=== PATIENT | female | born 2000 | race Caucasian/White ===

== ENCOUNTER 2020-04-16 16:46 | Emergency (ER) | payer OTHER, MEDICAID, SELFPAY ==
[2020-04-16 17:14] VITALS: BP 118/77; PULSE 112; RESP 17; TEMP 36.9; O2SAT 99; BMI 16.9
[2020-04-16 18:02] LABS: UR Morphine/Opiate cutoff 300 Negative (Negative); Ur Creatinine Normal (Normal); Ur Specific Gravity Normal (Normal); Urine Amphetamines Negative (Negative); Urine Barbiturates Negative (Negative); Urine Benzodiazepines Negative (Negative); Urine Cocaine Negative (Negative); Urine MDMA Negative (Negative); Urine Methadone Negative (Negative); Urine Methamphetamines Negative (Negative); Urine Oxycodone Negative (Negative); Urine Phencyclidine Negative (Negative); Urine Tetrahydrocannabinol Positive (Negative); Urine Tricyclic Antidepressant Negative (Negative); Urine pH Normal (Normal)
[2020-04-16 18:08] LABS: Add Manual Diff / Slide Review NO; Basophils Absolute Auto 0 /uL (0-100); Basophils Percent Auto 0.5 % (0-2); Eosinophils Absolute Auto 0 /uL (0-450); Eosinophils Percent Auto 0.2 % (2-4); Hematocrit 40.6 % (36-46); Hemoglobin 13.2 g/dL (12.0-16.0); Lymphocytes Absolute Auto 1200 /uL (1100-4500); Lymphocytes Percent Auto 13.5 % (25-40); Mean Corpuscular HGB Conc 32.4 % (30-36); Mean Corpuscular Hemoglobin 28.9 PG (26-34); Monocytes Absolute Auto 500 /uL (0-900); Neutrophils Absolute Auto 7400 /uL (1500-7000); Neutrophils Percent Auto 80.8 % (50-75); Platelet Count 249 X10^3/uL (150-400); Red Blood Cell Count 4.56 X10^6/uL (4.0-5.2); Red Cell Distribution Width 12.8 % (11.6-14.8); White Blood Cell Count 9.1 X10^3/uL (4.5-11.0)
[2020-04-16 18:16] LABS: Acetaminophen < 10 ug/mL (10-30); Alanine Aminotransferase 17 IU/L (<35); Albumin 4.5 g/dL (3.5-5.0); Albumin Globulin Ratio 1.5 (1.0-2.8); Alkaline Phosphatase 51 U/L (38-126); Aspartate Aminotransferase 28 IU/L (14-36); BUN Creatinine Ratio 21.1 (6-22); Bilirubin Total 0.3 mg/dL (0.2-1.3); Blood Urea Nitrogen 12 mg/dL (7-17); Carbon Dioxide 27 mmol/L (22-32); Chloride 105 mmol/L (98-107); Estimated Glomerular Filt Rate > 60.0 mL/min (>60); Ethanol (ETOH) < 10 mg/dL; Globulin 3.1 g/dL (1.7-4.1); Glucose 118 mg/dL (70-100); HEMOLYSIS < 15 (0-50); Potassium 4.1 mmol/L (3.4-5.1); Salicylate < 1.0 mg/dL (<20); Sodium 137 mmol/L (137-145); Total Protein 7.6 g/dL (6.3-8.2)
[2020-04-16 18:32] LABS: Free T4, Direct Thyroxine 1.08 ng/dL (0.78-2.19)
[2020-04-16 18:46] LABS: Thyroid Stimulating Hormone 1.15 uIU/mL (0.47-4.68)
[2020-04-16 22:25] VITALS: BP 105/59; PULSE 62; RESP 16; O2SAT 100
--- NOTE | 2020-04-16 23:02 | PC.NURSE ---
Spoke with pt, she denies any suicidal thoughts/plans. Does not wish to end her life, or harm anyone else. She has thought about banging my head on the wall when its too much, but I don't want to . She is feeling overwhelmed with her daily stress/motherhood to her one year old child. Has supportive boyfriend at bedside. She lives with her parents and siblings, who are helpful with her son. She reports increased anxiety, OCD flares and feeling overwhelmed after having her son. She reports that she has tried to get counseling services/or inpatient help, but has been unable to.
--- NOTE | 2020-04-16 23:17 | ED_ITS ---
HPI - Psych General Chief Complaint: Psychiatric Symptoms Stated Complaint: states mental break Time Seen by Provider: 04/16/20 23:15 Source: patient Mode of arrival: Ambulatory Limitations: no limitations History of Present Illness HPI Narrative: The patient is about 1 year . Prior to the , she was in counseling for anxiety. The counseling was successful for her. During the she felt she no longer needs services, she was very happy during her . She is now having issues with anxiety and stress. She had argument with her mother earlier today. She has been seen prior to coming here, the feels fever or not taking her seriously. She has no alcohol or substance abuse. She is not homicidal or suicidal. She is feeling stressed. She has no insomnia, no crying episodes. She has no prior history of medication used for anxiety or depression. She denies recent illness. Review of Systems Review of Systems ROS Unobtainable: All systems reviewed & are unremarkable except as noted in HPI and below Constitutional Constitutional: Denies fever(s), Denies headache(s) and Denies malaise Comments: No recent illness Eyes Eyes: Denies change in vision ENT Ears, Nose, Mouth, and Throat: Denies headache(s) and Denies sore throat Cardiovascular Cardiovascular: Denies chest pain, Denies rapid heart rate and Denies dyspnea Respiratory Respiratory: Denies cough, Denies dyspnea and Denies wheezing Gastrointestinal Gastrointestinal: Denies abdominal pain, Denies diarrhea, Denies nausea and Denies vomiting Genitourinary Genitourinary: Denies dysuria Genitourinary: Denies dysuria Comments: Not Musculoskeletal Musculoskeletal: Denies back pain and Denies arthralgias Integumentary/Breasts Skin/Breast: Denies pruritus, Denies erythema and Denies rash Neurologic Neurologic: Denies confusion and Denies headache(s) Psychiatric Psychiatric: Denies confusion Allergic/Immunologic Allergic/Immunologic: Denies wheezing Patient History Medical History (Updated 04/17/20 @ 00:07 by Cruz Massey MD) Anxiety (Acute) Surgical History (Updated 04/16/20 @ 23:38 by Cruz Massey MD) No significant past surgical history (Acute) Social History Smoking Status: Current every day smoker Smoking Status: Current every day smoker tobacco type: cigarettes alcohol intake frequency: other Substance Use Type: marijuana Exam Initial Vital Signs Initial Vital Signs: Vital Signs Temperature 98.4 F 04/16/20 17:14 Pulse Rate 112 H 04/16/20 17:14 Respiratory Rate 17 04/16/20 17:14 Blood Pressure 118/77 04/16/20 17:14 Pulse Oximetry 99 04/16/20 17:14 Const General: cooperative and well developed Nutritional Appearance: well nourished [facility] Head: normocephalic and atraumatic Mouth: oral mucosae normal Eyes General: appearance normal, both eyes and all related structures Eyelids: eyelids normal Conjunctivae: conjunctivae normal Sclera: sclerae normal Pupils: PERRL EOM: EOM intact bilaterally Neck Thyroid: thyroid normal Chest Chest: normal inspection of the chest Resp Effort & Inspection: normal respiratory effort and able to speak in complete sentences Auscultation: clear to auscultation bilaterally Cardio Rate: regular rate Rhythm: regular rhythm Heart Sounds: no click, no gallops, no murmurs and no rubs Pulses: normal peripheral pulses GI Palpation: soft Percussion: normal to percussion Auscultation: normal bowel sounds Back/Spine/Pelvis Back: No CVA tenderness Skin General: no rashes or lesions noted, No jaundice and No petechiae Neuro General: patient alert, patient oriented x3, gait normal and no focal motor deficits Speech: speech normal Psych Appearance: well kempt Mental Status: mental status grossly normal Attitude: cooperative Thought Content: normal, no delusions, no hallucinations, no homicidality and suicidality Judgment: judgment good Course Course Course Narrative: The patient has a history of anxiety, she is experiencing ongoing issues with anxiety. We gave her contact information for [facility], and contact information for [facility]. She is advised to self refer tomorrow. She can return here as needed. Orders Ordered: ED Orders 04/16/20 17:45 Urine Drug Screen, Rapid Stat 04/16/20 17:50 Acetaminophen Stat Complete Blood Count AUTO DIFF Stat Comprehensive Metabolic Panel Stat Ethanol (ETOH) Stat Free T4, Direct Thyroxine Stat Salicylate Stat Thyroid Stimulating Hormone Stat 04/16/20 18:50 Consult to [employer] - [employer] N[employer] Stat Vital Signs Vital signs: Vital Signs - 8 hr 04/16/20 17:14 04/16/20 22:25 Temperature 98.4 F Pulse Rate 112 H 62 Respiratory Rate 17 16 Blood Pressure 118/77 105/59 L Pulse Oximetry 99 100 MDM - Psych Lab Data Result diagrams: 04/16/20 17:50 04/16/20 17:50 Labs: Lab Results 04/16/20 04/16/20 04/16/20 Range/Units 17:45 17:50 17:50 WBC 9.1 (4.5-11.0) X10^3/uL RBC 4.56 (4.0-5.2) X10^6/uL Hgb 13.2 (12.0-16.0) g/dL Hct 40.6 (36-46) % MCV 89.0 (80-100) fL MCH 28.9 (26-34) PG MCHC 32.4 (30-36) % RDW 12.8 (11.6-14.8) % Plt Count 249 (150-400) X10^3/uL Neut % (Auto) 80.8 H (50-75) % Lymph % (Auto) 13.5 L (25-40) % [place] % (Auto) 5.0 (3-14) % Eos % (Auto) 0.2 L (2-4) % Baso % (Auto) 0.5 (0-2) % Neut # (Auto) 7400 H (7291-3640) /uL Lymph # (Auto) 1200 (2533-0320) /uL [place] # (Auto) 500 (0-900) /uL Eos # (Auto) 0 (0-450) /uL Baso # (Auto) 0 (0-100) /uL Sodium 137 (137-145) mmol/L Potassium 4.1 (3.4-5.1) mmol/L Chloride 105 (98-107) mmol/L Carbon Dioxide 27 (22-32) mmol/L BUN 12 (7-17) mg/dL Creatinine 0.57 (0.52-1.04) mg/dL Estimated GFR > 60.0 (>60) mL/min BUN/Creatinine Ratio 21.1 (6-22) Glucose 118 H (70-100) mg/dL Calcium 9.0 (8.4-10.2) mg/dL Total Bilirubin 0.3 (0.2-1.3) mg/dL AST 28 (14-36) IU/L ALT 17 (<35) IU/L Alkaline Phosphatase 51 (38-126) U/L Total Protein 7.6 (6.3-8.2) g/dL Albumin 4.5 (3.5-5.0) g/dL Globulin 3.1 (1.7-4.1) g/dL Albumin/Globulin Ratio 1.5 (1.0-2.8) TSH (0.47-4.68) uIU/mL Free T4 (0.78-2.19) ng/dL Salicylates < 1.0 (<20) mg/dL U Opiates 300ng/mL cut Negative (Negative) Ur Oxycodone Screen Negative (Negative) Urine Methadone Screen Negative (Negative) Acetaminophen < 10 L (10-30) ug/mL Ur Barbiturates Screen Negative (Negative) U Tricyclic Antidepress Negative (Negative) Ur Phencyclidine Scrn Negative (Negative) Ur Amphetamines Screen Negative (Negative) U Methamphetamines Scrn Negative (Negative) Ur MDMA Scrn (Ecstasy) Negative (Negative) U Benzodiazepines Scrn Negative (Negative) Urine Cocaine Screen Negative (Negative) U Marijuana (THC) Screen Positive H (Negative) Ethyl Alcohol < 10 ( - 10) mg/dL 04/16/20 Range/Units 17:50 WBC (4.5-11.0) X10^3/uL RBC (4.0-5.2) X10^6/uL Hgb (12.0-16.0) g/dL Hct (36-46) % MCV (80-100) fL MCH (26-34) PG MCHC (30-36) % RDW (11.6-14.8) % Plt Count (150-400) X10^3/uL Neut % (Auto) (50-75) % Lymph % (Auto) (25-40) % [place] % (Auto) (3-14) % Eos % (Auto) (2-4) % Baso % (Auto) (0-2) % Neut # (Auto) (6221-0145) /uL Lymph # (Auto) (6715-6658) /uL [place] # (Auto) (0-900) /uL Eos # (Auto) (0-450) /uL Baso # (Auto) (0-100) /uL Sodium (137-145) mmol/L Potassium (3.4-5.1) mmol/L Chloride (98-107) mmol/L Carbon Dioxide (22-32) mmol/L BUN (7-17) mg/dL Creatinine (0.52-1.04) mg/dL Estimated GFR (>60) mL/min BUN/Creatinine Ratio (6-22) Glucose (70-100) mg/dL Calcium (8.4-10.2) mg/dL Total Bilirubin (0.2-1.3) mg/dL AST (14-36) IU/L ALT (<35) IU/L Alkaline Phosphatase (38-126) U/L Total Protein (6.3-8.2) g/dL Albumin (3.5-5.0) g/dL Globulin (1.7-4.1) g/dL Albumin/Globulin Ratio (1.0-2.8) TSH 1.15 (0.47-4.68) uIU/mL Free T4 1.08 (0.78-2.19) ng/dL Salicylates (<20) mg/dL U Opiates 300ng/mL cut (Negative) Ur Oxycodone Screen (Negative) Urine Methadone Screen (Negative) Acetaminophen (10-30) ug/mL Ur Barbiturates Screen (Negative) U Tricyclic Antidepress (Negative) Ur Phencyclidine Scrn (Negative) Ur Amphetamines Screen (Negative) U Methamphetamines Scrn (Negative) Ur MDMA Scrn (Ecstasy) (Negative) U Benzodiazepines Scrn (Negative) Urine Cocaine Screen (Negative) U Marijuana (THC) Screen (Negative) Ethyl Alcohol ( - 10) mg/dL Point of Care Testing Test Results Positive Urine Dip Bedside Urine Glucose Negative Bedside Urine Bilirubin - Negative Bedside Urine Ketone - Negative Urine Specific [place] 1.015 Bedside Urine Occult Blood - Negative Bedside Urine pH 6.0 Bedside Urine Protein - Negative Bedside Urine Urobilinogen - Negative Bedside Urine Nitrite - Negative Bedside Urine Leukocytes - Negative Esterase Discharge Plan Departure Patient Disposition: Home Clinical Impression: Anxiety Instructions: DI for Anxiety -- Adult Activity Restrictions/Additional Instructions: We gave you information for [facility], I would recommend contacting them and seeking counseling for anxiety. Additionally, having number for [facility] of [employer]. This is another potential good area to receive help. Contact them at [phone] Return the ER as needed.
[2020-04-17 00:07] VITALS: BP 140/102; PULSE 88; RESP 18; TEMP 36.3; O2SAT 100
== END 2020-04-17 00:14 | disposition home or self-care (01) ==
PROVIDERS: Emergency Medicine; Emergency Provider Emergency Medicine
DX: F41.9 Anxiety disorder, unspecified (principal)
CPT/HCPCS: 36415; 80053; 80305; 80320; 80329; 81003; 81025; 84439; 84443; 85025; 99283; 99284; G0480

== ENCOUNTER 2021-07-16 17:45 | Emergency (ER) | payer OTHER, MEDICAID, SELFPAY ==
[2021-07-16 17:53] VITALS: BP 124/78; PULSE 86; RESP 14; TEMP 36.4; O2SAT 99; BMI 16.8
[2021-07-16 18:36] LABS: RBC Urine 1-5/HPF (0-5/HPF); Squamous Epithelial Cell Urine 5-10 /HPF (0-5/HPF)
[2021-07-16 18:37] LABS: Bacteria Urine Many (>30); Transitional Epi Cells Urine 5-10/HPF (0-5/HPF)
[2021-07-16 18:38] LABS: Culture Indicated Urine Specimen Cultured; WBC Urine 10-30/HPF (0-5/HPF)
[2021-07-16] MEDS: IBUPROFEN 400 MG TABLET PO (18:46)
[2021-07-16] MEDS: ACETAMINOPHEN 325 MG TABLET 975 MG PO (18:46)
--- NOTE | 2021-07-16 19:16 | DI.RAD.S_ITS ---
PROCEDURE: XR LUMBAR SPINE 2-3V INDICATIONS: low back pain after twisting TECHNIQUE: 3 views of the lumbar spine were acquired. COMPARISON: None. FINDINGS: Bones: 5 [id number] vertebrae are present. There is normal bony alignment. No vertebral body compression fractures. No suspicious bony lesions. Soft tissues: Overlying bowel gas pattern is normal. No suspicious soft tissue calcifications. IMPRESSION: No acute fracture. No osseous lesion. If symptoms and/or clinical suspicion for pathology persist, further assessment with repeat, or advanced imaging (e.g., CT, MRI, or bone scan) may be helpful for further assessment. Dictated by: Chip Blanton M.D. on 07/16/2021 at 19:31 Approved by: Chip Blanton M.D. on 07/16/2021 at 19:31
[2021-07-16] MEDS: LIDOCAINE PATCH 1 EACH ADH..PATCH TOP (19:45)
[2021-07-16] MEDS: methocarbamoL 500 MG TABLET PO (19:45)
--- NOTE | 2021-07-16 19:56 | ED_ITS ---
HPI - Back Pain/Injury <MARIO Cheney - Last Filed: 07/16/21 20:31> General Chief Complaint: Back Pain/Injury Stated Complaint: back pain Time Seen by Provider: 07/16/21 18:45 Source: patient History of Present Illness HPI Narrative: 21-year-old female presents to the emergency department for low back pain after she bent down and was helping with her child yesterday. She states that she feels like her back when out in she has had sharp pain in her low back which is only comfortable when she lays down. She has tried Tylenol and ibuprofen for this with some improvement in her symptoms. Patient denies any nausea vomiting, any fever, denies any weakness in her lower extremities, or numbness or tingling. Related Data Previous Rx's Medication Instructions Recorded ibuprofen 600 mg tablet 600 mg PO Q8H PRN #20 tab 07/16/21 lidocaine 5 % topical patch 1 patch TOPICAL DAILY PRN #15 ea 07/16/21 methocarbamol 500 mg tablet 500 mg PO TID PRN #20 tab 07/16/21 Allergies Allergy/AdvReac Type Severity Reaction Status Date / Time No Known Drug Allergies Allergy Verified 07/16/21 17:55 Review of Systems <MARIO Cheney - Last Filed: 07/16/21 20:31> Review of Systems Narrative: General: denies fever, chills, malaise, sweats, fatigue Head/Neck: denies headache, neck pain, dizziness Eyes: denies visual changes, eye pain Cardio: denies chest pain, palpitations, edema Respiratory: denies dyspnea, cough, orthopnea GI: Endorses transverse low abdominal pain occasionally which started today, denies nausea, vomiting, or diarrhea : denies dysuria, hematuria, urinary retention, frequency or incontinence, endorses vaginal discharge has been white/yellow MSK: denies joint pain, muscle weakness, endorses low back pain Skin: denies rash, itching, skin lesions or other Neuro: denies numbness, tingling Patient History <MARIO Cheney - Last Filed: 07/16/21 20:31> Medical History Anxiety Surgical History No significant past surgical history Social History Smoking Status: Current every day smoker Smoking Status: Current every day smoker tobacco type: cigarettes alcohol intake frequency: holidays/special occasions only Substance Use Type: marijuana Exam <MARIO Cheney - Last Filed: 07/16/21 20:31> Narrative Exam Narrative: Independently reviewed vitals signs and nursing notes. General: Cooperative, comfortable, in no acute distress, well developed and well groomed Head/Neck: Normal visual inspection and supple, atraumatic, no JVD or lymphadenopathy. Normal facial exam Eyes: Pupils equal round and reactive, EOMI, conjunctiva normal, no scleral icterus or injections Nose: External nose normal, nares patent, no rhinorrhea, without purulent drainage Mouth/Throat: uvula midline, moist mucus membranes Cardio: Regular rate and rhythm, no peripheral edema, warm extremities Respiratory: Normal respiratory effort, able to speak in complete sentences without audible wheezing, stridor, or rales. No retractions. GI: Abdomen soft, nontender to palpation x4 quadrants, nondistended, no masses or exquisite tenderness with exam, no flank tenderness MSK: Moves all extremities, neurovascularly intact, no point tenderness along spine, no CVA tenderness, full range of motion and ambulation was steady gait observed, no neuro deficits Skin: Normal capillary refill, no rash Neuro: Normal speech and cognition, normal gait, A&O x3, tone normal, moves all extremities Psych: Mental status is grossly normal, speech is clear, congruent mood, normal affect Initial Vital Signs Initial Vital Signs: Vital Signs Temperature 97.5 F L 07/16/21 17:53 Pulse Rate 86 07/16/21 17:53 Respiratory Rate 14 07/16/21 17:53 Blood Pressure 124/78 07/16/21 17:53 Pulse Oximetry 99 07/16/21 17:53 <Mauro Hayes DO - Last Filed: 07/23/21 18:05> Initial Vital Signs Initial Vital Signs: Vital Signs Temperature 97.5 F L 07/16/21 17:53 Pulse Rate 86 07/16/21 17:53 Respiratory Rate 14 07/16/21 17:53 Blood Pressure 124/78 07/16/21 17:53 Pulse Oximetry 99 07/16/21 17:53 Course <Gissell Peguero [facility] - Last Filed: 07/16/21 20:31> Orders Ordered: Discontinued Medications Acetaminophen (Acetaminophen 325 Mg Tablet) 975 mg PO NOW ONE Stop: 07/16/21 18:42 Last Admin: 07/16/21 18:46 Dose: 975 mg Documented by: OPAL Ibuprofen (Ibuprofen 400 Mg Tablet) 400 mg PO NOW ONE Stop: 07/16/21 18:42 Last Admin: 07/16/21 18:46 Dose: 400 mg Documented by: OPAL Lidocaine (Lidocaine Patch 1 Each Adh..Patch) 1 each TOP NOW ONE Stop: 07/16/21 19:18 Last Admin: 07/16/21 19:45 Dose: 1 each Documented by: OPAL Methocarbamol (Methocarbamol 500 Mg Tablet) 500 mg PO NOW ONE Stop: 07/16/21 19:17 Last Admin: 07/16/21 19:45 Dose: 500 mg Documented by: OPAL Metronidazole (Metronidazole 500 Mg Tablet) 500 mg PO NOW ONE Stop: 07/16/21 20:23 Last Admin: 07/16/21 20:25 Dose: 500 mg Documented by: BETITO Vital Signs Vital signs: Vital Signs - 8 hr 07/16/21 17:53 Temperature 97.5 F L Pulse Rate 86 Respiratory Rate 14 Blood Pressure 124/78 Pulse Oximetry 99 <Mauro Hayes DO - Last Filed: 07/23/21 18:05> Orders Ordered: Discontinued Medications Acetaminophen (Acetaminophen 325 Mg Tablet) 975 mg PO NOW ONE Stop: 07/16/21 18:42 Last Admin: 07/16/21 18:46 Dose: 975 mg Documented by: OPAL Ibuprofen (Ibuprofen 400 Mg Tablet) 400 mg PO NOW ONE Stop: 07/16/21 18:42 Last Admin: 07/16/21 18:46 Dose: 400 mg Documented by: OPAL Lidocaine (Lidocaine Patch 1 Each Adh..Patch) 1 each TOP NOW ONE Stop: 07/16/21 19:18 Last Admin: 07/16/21 19:45 Dose: 1 each Documented by: OPAL Methocarbamol (Methocarbamol 500 Mg Tablet) 500 mg PO NOW ONE Stop: 02/03/22 19:17 Last Admin: 07/16/21 19:45 Dose: 500 mg Documented by: OPAL Metronidazole (Metronidazole 500 Mg Tablet) 500 mg PO NOW ONE Stop: 07/16/21 20:23 Last Admin: 07/16/21 20:25 Dose: 500 mg Documented by: BETITO Vital Signs Vital signs: Vital Signs - 8 hr 07/16/21 17:53 Temperature 97.5 F L Pulse Rate 86 Respiratory Rate 14 Blood Pressure 124/78 Pulse Oximetry 99 MDM - Back Pain/Injury <Gissell Peguero [facility] - Last Filed: 07/16/21 20:31> Lab Data Labs: Lab Results 07/16/21 07/16/21 Range/Units 18:22 20:07 Urine RBC 1-5/hpf (0-5/HPF) Urine WBC 10-30/hpf H (0-5/HPF) Ur Squamous Epith Cells 5-10 /hpf H (0-5/HPF) Ur Transition Epith Cell 5-10/hpf H (0-5/HPF) Urine Bacteria Many (>30) H (None) Ur Culture Indicated? Specimen cultured Micro UA Comment Moderate clue cells Ur Chlamydia DNA (PCR) Not detected N gonorrhoeae DNA (PCR) Not detected Point of Care Testing Test Results Negative Urine Dip Bedside Urine Glucose Negative Bedside Urine Bilirubin + 1 Bedside Urine Ketone +/- 5 Urine Specific [place] 1.015 Bedside Urine Occult Blood +/- Bedside Urine pH 7.5 Bedside Urine Protein + 30 Bedside Urine Urobilinogen - Negative Bedside Urine Nitrite - Negative Bedside Urine Leukocytes - Negative Esterase Imaging Data Extremity x-ray #1: Radiologist's Impression: PROCEDURE:? XR LUMBAR SPINE 2-3V ? INDICATIONS:? low back pain after twisting ? TECHNIQUE:? 3 views of the lumbar spine were acquired.? ? COMPARISON:? None. ? FINDINGS:? ? Bones:? 5 [id number] vertebrae are present.? There is normal bony alignment.? No vertebral body compression fractures.? No suspicious bony lesions.? ? Soft tissues:? Overlying bowel gas pattern is normal.? No suspicious soft tissue calcifications.? ? ? IMPRESSION:? No acute fracture. No osseous lesion. If symptoms and/or clinical suspicion for pathology persist, further assessment with repeat, or advanced imaging (e.g., CT, MRI, or bone scan) may be helpful for further assessment. ? ? Dictated by: Chip Blanton M.D. on 07/16/2021 at 19:31 ? ? Approved by: Chip Blanton M.D. on 07/16/2021 at 19:31 ? [facility] Narrative Medical decision making narrative: 21-year-old female presents to the emergency department for low back pain after she bent down and was helping with her child yesterday. She states that she feels like her back when out in she has had sharp pain in her low back which is only comfortable when she lays down. She has tried Tylenol and ibuprofen for this with some improvement in her symptoms. Patient denies any nausea vomiting, any fever, denies any weakness in her lower extremities, or numbness or tingling. X-ray was negative for acute fracture, no osseous lesion, normal bony alignment without vertebral body compression fractures. This is most likely a low back strain or sprain. Patient was given a lidocaine patch in the emergency department which she thought was very helpful for her, she was also given Robaxin. She was found to have clue cells in her urine microscopy, wet prep completed which shows many clue cells. Urine also sent for chlamydia and gonorrhea. Patient given Flagyl in the emergency department and a 7 day course of b.i.d. 500 mg of Flagyl. Patient instructed to follow-up with her primary care provider which she states is upcoming in a few days. Multiple etiologies of back pain considered including; Epidural abscess, cauda equina, mass occupying lesion, lumbar fracture, intra-abdominal pathology chronic neuropathic pain and other considered. Patient is appropriate and amenable to discharge home. Vital signs are stable on repeat examination is unremarkable. Patient has been informed of results. Patient has been given strict return to ER precautions for any new or worsening symptoms. Patient understands to follow up closely with outpatient providers as instructed. Patient understands plan and agrees to discharge home. All questions and concerns answered at this time. <Mauro Hayes, - Last Filed: 07/23/21 18:05> Lab Data Labs: Lab Results 07/16/21 07/16/21 Range/Units 18:22 20:07 Urine RBC 1-5/hpf (0-5/HPF) Urine WBC 10-30/hpf H (0-5/HPF) Ur Squamous Epith Cells 5-10 /hpf H (0-5/HPF) Ur Transition Epith Cell 5-10/hpf H (0-5/HPF) Urine Bacteria Many (>30) H (None) Ur Culture Indicated? Specimen cultured Micro UA Comment Moderate clue cells Ur Chlamydia DNA (PCR) Not detected N gonorrhoeae DNA (PCR) Not detected Point of Care Testing Test Results Negative Urine Dip Bedside Urine Glucose Negative Bedside Urine Bilirubin + 1 Bedside Urine Ketone +/- 5 Urine Specific [place] 1.015 Bedside Urine Occult Blood +/- Bedside Urine pH 7.5 Bedside Urine Protein + 30 Bedside Urine Urobilinogen - Negative Bedside Urine Nitrite - Negative Bedside Urine Leukocytes - Negative Esterase Discharge Plan Departure Patient Disposition: Home Clinical Impression: Bacterial vaginal infection Strain of lumbar region Qualifiers: Encounter type: initial encounter Qualified Code(s): S39.012A - Strain of muscle, fascia and tendon of lower back, initial encounter Instructions: DI for Bacterial Vaginosis, DI for Back Spasm, DI for Back Strain or Sprain Activity Restrictions/Additional Instructions: *You have been diagnosed with bacterial vaginosis and a low back strain. Please use the lidocaine patches and muscle relaxers as needed for your pain. I also called in some ibuprofen for you, take this every 8 hours as needed, remember to drink plenty of water to keep herself hydrated on medications. Please take the Flagyl antibiotic twice a day for 7 days. We will call you if your other tests are positive and if you need any other antibiotics. Please return to the emergency department if you have any worsening of your symptoms. Thank you for trusting us with your care, I hope you start feeling better soon. *What to do: *Please continue to take your regular medications as directed. [ x] New medication prescriptions sent to your pharmacy: [Rika Andrew ] [ ] New medication written as a paper prescription [ ] No new medications given *Please follow up with your primary care provider in 2-3 days, call for an appointment. Let them know you were seen in the Emergency Department and that we ask that you be seen in follow up. We will electronically transmit a record of today's note if your PCP is in our system *If you do not have a primary care provider please contact the [facility] Resource line at [phone]. They will ask some questions about your medical history and help get you set up with a doctor in the community. *Return to Emergency Department if you should have any new, worsening or concerning symptoms, such as [fever greater than 101F, chills, worsening pain, persistent vomiting or other bothersome symptoms] Prescriptions: New lidocaine 5 % adhesive patch,medicated 1 patch topical DAILY PRN (Reason: pain, moderate) Qty: 15 0RF Rx Instructions: leave on most painful area for up to 12 hrs methocarbamol 500 mg tablet 500 mg PO TID PRN (Reason: muscle spasm) Qty: 20 0RF ibuprofen 600 mg tablet 600 mg PO Q8H PRN (Reason: pain) Qty: 20 0RF Referrals: Brandon Aparicio MD [Non-Staff] - Stand Alone Forms: Work Release Note <Mauro Hayes, - Last Filed: 07/23/21 18:05> Cosign ED Attending Cosignature Attestation: Dr Hayes Co-Sign Statement: I was available for consultation during this patient's emergency department visit. This chart is signed by myself for administrative purposes only. I did not have direct contact with this patient during this visit. They were seen independently by the APC.
[2021-07-16] MEDS: metroNIDAZOLE 500 MG TABLET PO (20:25)
--- NOTE | 2021-07-16 20:34 | PC.NURSE ---
Pt states she bent over to excelsior picker something off a bottom shelf and turned wrong and threw out her lumbar back. no fall. Pt took aleve around 1600 without relief. given ibuprofen and tylenol in ED. followed up with lidocaine patch and robaxin. Urine sample obtained and micro ordered. awaiting further assessment from provider.
[2021-07-16 20:36] VITALS: BP 136/78; PULSE 81; RESP 16; O2SAT 98
[2021-07-16 23:09] LABS: Urine N gonorrhoeae NOT DETECTED
[2021-07-16 23:11] LABS: Urine Chlamydia NOT DETECTED
== END 2021-07-16 20:36 | disposition home or self-care (01) ==
PROVIDERS: Emergency Medicine; Emergency Provider Nurse Practitioner Critical Care Medicine
DX: N76.0 Acute vaginitis (principal); B96.89 Other specified bacterial agents as the cause of diseases classified elsewhere; S39.012A Strain of muscle, fascia and tendon of lower back, initial encounter; F17.210 Nicotine dependence, cigarettes, uncomplicated; X58.XXXA Exposure to other specified factors, initial encounter
CPT/HCPCS: 72100; 81003; 81015; 81025; 87086; 87210; 87491; 87591; 99283